=== PATIENT | female | born 1995 | race Two or more races ===

== ENCOUNTER 2022-03-01 08:35 | Emergency (ER) | payer OTHER ==
[~2022-03-01] VITALS: Ht 165.1 cm; Wt 49.0 kg
== END 2022-03-01 12:59 | disposition home or self-care (01) ==
LOC: ER 08:35
DX: O99.281 Endocrine, nutritional and metabolic diseases complicating pregnancy, first trimester (principal); Z3A.11 11 weeks gestation of pregnancy; K52.9 Noninfective gastroenteritis and colitis, unspecified; E86.0 Dehydration; Z20.822 Contact with and (suspected) exposure to COVID-19

== ENCOUNTER 2022-04-04 15:30 | Emergency (ER) | payer OTHER ==
[~2022-04-04] VITALS: Ht 165.1 cm; Wt 52.2 kg
== END 2022-04-04 20:01 | disposition home or self-care (01) ==
LOC: ER 15:30
DX: O23.42 Unspecified infection of urinary tract in pregnancy, second trimester (principal); N39.0 Urinary tract infection, site not specified; Z3A.16 16 weeks gestation of pregnancy